=== PATIENT | female | born 1980 | race Two or more races ===

== ENCOUNTER 2017-01-26 11:12 | Outpatient (CLI) | payer BC, MEDICAID | END 2017-01-26 11:35 | disposition home or self-care (01) | LOC: LC 11:12 | PROVIDERS: ATTEND Student in an Organized Health Care Education/Training Program | PROC: 4A1HXCZ Monitoring of Products of Conception, Cardiac Rate, External Approach (ICD-10-PCS; principal; 2017-01-26) | DX: O09.523 Supervision of elderly multigravida, third trimester (principal); Z3A.35 35 weeks gestation of pregnancy | CPT/HCPCS: 59025 ==

== ENCOUNTER 2017-01-30 22:12 | Outpatient (CLI) | payer BC, MEDICAID ==
[2017-01-30 22:51] LABS: APPEARANCE,URINE SLIGHTLY-CLOUDY; BILIRUBIN,URINE NEGATIVE (NEGATIVE); GLUCOSE, URINE NEGATIVE (NEGATIVE); KETONES,URINE 20 mg/dL (NEGATIVE); LEUKOCYTE ESTERASE,URINE LARGE (NEGATIVE); NITRITE,URINE NEGATIVE (NEGATIVE); PROTEIN,URINE NEGATIVE (NEGATIVE); URINE SPECIFIC GRAVITY 1.006; UROBILINOGEN,URINE NEGATIVE mg/dL (<2.0)
[2017-01-30 23:02] LABS: URINE BARBITURATES SCREEN NEGATIVE; URINE METHADONE SCREEN NEGATIVE; URINE OPIATES LOW NEGATIVE; URINE PHENCYCLIDINE SCREEN NEGATIVE
--- NOTE | 2017-01-31 01:45 | Non Stress Test Report ---
Non Stress Test Datetime Report Generated by CPN: 01/31/2017 01:45 DEMOGRAPHIC Test Number: 2 EGA NST: 36.2 EGA NST: 35.5 INDICATION Indication for Study: Ordered by Provider Indication for Study: Ordered by Provider; Other Indication for Study (NST) Other: AMA VITAL SIGNS Temperature - NST: 98.1 Pulse - NST: 89 RESP - NST: 17 NBPSYS NST: 103 NBPDIA NST: 55 MONITORING Monitor Explained: Monitor Explained; Test Explained; Patient Verbalized Understanding Monitor Explained: Monitor Explained; Test Explained; Patient Verbalized Understanding Time on Monitor: 01/30/2017 22:29 Time on Monitor: 01/26/2017 11:25 Time off Monitor: 01/31/2017 00:08 Time off Monitor: 01/26/2017 11:51 NST Duration: 99 NST Duration: 26 NST INTERVENTIONS NST Interventions: PO Hydration; Reposition Patient NST Interventions: PO Hydration; Reposition Patient Physician Notified NST: Dr. Montez Physician Notified NST: DR MONTEZ BABY A: [id number] BABY A Movement : Present Movement : Present Contraction Frequency : occasional Contraction Frequency : denies FHR Baseline : 130 FHR Baseline : 130 Accelerations : 15X15 Accelerations : 15X15 Decelerations : None Decelerations : None Variability : Moderate 6-25bpm Variability : Moderate 6-25bpm NST Review: Meets Criteria for Reactive NST NST Review: Meets Criteria for Reactive NST NST Review and Verified By : Nadir Matthew RN NST Review and Verified By : SHAHRAM LUNA RN NST Results: Reactive NST Results: Reactive NST REPORT Report Trigger: Send Report
== END 2017-01-31 00:16 | disposition home or self-care (01) ==
LOC: LC 22:12
PROVIDERS: ATTEND Student in an Organized Health Care Education/Training Program
PROC: 4A1HXCZ Monitoring of Products of Conception, Cardiac Rate, External Approach (ICD-10-PCS; principal; 2017-01-30)
DX: O47.03 False labor before 37 completed weeks of gestation, third trimester (principal); O09.523 Supervision of elderly multigravida, third trimester; Z3A.36 36 weeks gestation of pregnancy
CPT/HCPCS: 59025; 80307; 81001

== ENCOUNTER 2017-02-01 14:34 | Outpatient (CLI) | payer BC, MEDICAID ==
[2017-02-01] MEDS ORDERED: RINGERS SOLUTION,LACTATED 1,000 ML IV PRN ×2 (15:11→15:12)
[2017-02-01 16:59] LABS: APPEARANCE,URINE SLIGHTLY-CLOUDY; BILIRUBIN,URINE NEGATIVE (NEGATIVE); GLUCOSE, URINE NEGATIVE (NEGATIVE); KETONES,URINE 80 mg/dL (NEGATIVE); LEUKOCYTE ESTERASE,URINE LARGE (NEGATIVE); NITRITE,URINE NEGATIVE (NEGATIVE); PROTEIN,URINE NEGATIVE (NEGATIVE); UROBILINOGEN,URINE NEGATIVE mg/dL (<2.0)
[2017-02-01 17:14] LABS: URINE BARBITURATES SCREEN NEGATIVE; URINE METHADONE SCREEN NEGATIVE; URINE OPIATES LOW NEGATIVE; URINE PHENCYCLIDINE SCREEN NEGATIVE
--- NOTE | 2017-02-01 17:23 | Non Stress Test Report ---
Non Stress Test Datetime Report Generated by CPN: 02/01/2017 17:23 DEMOGRAPHIC EGA NST: 36.4 INDICATION Indication for Study: Ordered by Provider MONITORING Monitor Explained: Monitor Explained; Test Explained; Patient Verbalized Understanding Time on Monitor: 02/01/2017 14:48 Time off Monitor: 02/01/2017 16:43 NST Duration: 115 NST INTERVENTIONS NST Interventions: IV Fluids BABY A: [id number] BABY A Movement : Present Contraction Frequency : rare FHR Baseline : 140 Accelerations : 15X15 Decelerations : None Variability : Moderate 6-25bpm NST Review: Meets Criteria for Reactive NST NST Review and Verified By : Ramses Hoff RN NST Results: Reactive NST REPORT Report Trigger: Send Report
== END 2017-02-01 17:15 | disposition home or self-care (01) ==
LOC: LC 14:34
PROVIDERS: ATTEND Specialist
PROC: 4A1HXCZ Monitoring of Products of Conception, Cardiac Rate, External Approach (ICD-10-PCS; principal; 2017-02-01)
DX: O21.1 Hyperemesis gravidarum with metabolic disturbance (principal); Z3A.36 36 weeks gestation of pregnancy
CPT/HCPCS: 59025; 80307; 81001

== ENCOUNTER 2017-02-13 12:11 | Outpatient (CLI) | payer BC, MEDICAID | END 2017-02-13 12:51 | disposition home or self-care (01) | LOC: LC 12:11 | PROVIDERS: ATTEND Obstetrics & Gynecology | PROC: 4A1HXCZ Monitoring of Products of Conception, Cardiac Rate, External Approach (ICD-10-PCS; principal; 2017-02-13) | DX: O99.283 Endocrine, nutritional and metabolic diseases complicating pregnancy, third trimester (principal); E86.0 Dehydration; O09.523 Supervision of elderly multigravida, third trimester; Z3A.38 38 weeks gestation of pregnancy | CPT/HCPCS: 59025 ==

== ENCOUNTER 2017-02-16 15:00 | Outpatient (CLI) | payer BC, MEDICAID ==
--- NOTE | 2017-02-16 15:11 | Non Stress Test Report ---
Non Stress Test Datetime Report Generated by CPN: 02/16/2017 15:11 DEMOGRAPHIC EGA NST: 38.2 INDICATION Indication for Study: Ordered by Provider; Other MONITORING Monitor Explained: Monitor Explained; Test Explained; Patient Verbalized Understanding Time on Monitor: 02/13/2017 12:23 Time off Monitor: 02/13/2017 12:48 NST Duration: 25 NST INTERVENTIONS NST Interventions: PO Hydration; Reposition Patient; Vibroacoustic Stim Physician Notified NST: Dr Perry BABY A: [id number] BABY A Movement : Present Contraction Frequency : denies FHR Baseline : 135 Accelerations : 15X15 Decelerations : None Variability : Moderate 6-25bpm NST Review: Meets Criteria for Reactive NST NST Review and Verified By : José Bellavancfranki RENC NST Results: Reactive NST REPORT Report Trigger: Send Report
== END 2017-02-16 15:45 | disposition home or self-care (01) ==
LOC: LC 15:00
PROVIDERS: ATTEND Specialist
PROC: 4A1HXCZ Monitoring of Products of Conception, Cardiac Rate, External Approach (ICD-10-PCS; principal; 2017-02-16)
DX: O09.523 Supervision of elderly multigravida, third trimester (principal); Z3A.38 38 weeks gestation of pregnancy
CPT/HCPCS: 59025

== ENCOUNTER 2017-02-22 06:52 | Inpatient (IN) | payer BC, MEDICAID ==
[2017-02-22] MEDS ORDERED: CEFAZOLIN 2 GM/D5W RTU 2 GM/50 ML RTUPB IV PRN (07:06)
[2017-02-22 07:16] LABS: ABSOLUTE LYMPHOCYTES (AUTO) 2.6 10^3/uL (0.5-4.7); ABSOLUTE MONOCYTES (AUTO) 0.5 10^3/uL (0.1-1.4); ABSOLUTE NEUT (AUTO) 5.7 10^3/uL (1.7-8.2); BASOPHILS % (AUTO) 0.4 % (0-2); EOSINOPHILS % (AUTO) 0.6 % (0-6); HEMATOCRIT 26.3 % (36.0-47.0); HEMOGLOBIN 8.9 g/dL (12.0-15.5); HGB HCT DIFFERENCE 0.4; MEAN CORPUSCULAR HEMOGLOBIN 27.7 pg (27.0-33.4); MEAN CORPUSCULAR HGB CONC 33.6 g/dL (32.0-36.0); MEAN CORPUSCULAR VOLUME 83 fl (80-97); MONOCYTES % (AUTO) 5.8 % (3-13); RED BLOOD COUNT 3.19 10^6/uL (3.72-5.28); RED CELL DISTRIBUTION WIDTH 14.7 % (11.5-14.0); SEGMENTED NEUTROPHILS % (AUTO) 64.2 % (42-78); WHITE BLOOD COUNT 8.9 10^3/uL (4.0-10.5)
[2017-02-22] MEDS ORDERED: RINGERS SOLUTION,LACTATED 1,000 ML IV PRN (07:48)
[2017-02-22] MEDS ORDERED: RINGERS SOLUTION,LACTATED 2,000 ML IV ONE (08:00)
[2017-02-22] MEDS ORDERED: OXYTOCIN 10 UNIT/ML VIAL ONE (09:10)
[2017-02-22] MEDS ORDERED: EPHEDRINE SULFATE INJ 50 MG/1 ML AMPULE ONE (09:10)
[2017-02-22 09:14] LABS: APPEARANCE,URINE TURBID; BILIRUBIN,URINE NEGATIVE (NEGATIVE); GLUCOSE, URINE NEGATIVE (NEGATIVE); KETONES,URINE TRACE mg/dL (NEGATIVE); LEUKOCYTE ESTERASE,URINE LARGE (NEGATIVE); NITRITE,URINE NEGATIVE (NEGATIVE); PROTEIN,URINE NEGATIVE (NEGATIVE); URINE SPECIFIC GRAVITY 1.008; UROBILINOGEN,URINE NEGATIVE mg/dL (<2.0)
[2017-02-22 09:27] LABS: URINE BARBITURATES SCREEN NEGATIVE; URINE METHADONE SCREEN NEGATIVE; URINE OPIATES LOW NEGATIVE; URINE PHENCYCLIDINE SCREEN NEGATIVE
[2017-02-22] MEDS ORDERED: PROMETHAZINE HCL INJ 25 MG/1 ML VIAL IV PRN ×2 (10:29)
[2017-02-22] MEDS ORDERED: MEPERIDINE HCL/PF INJ 25 MG/1 ML DISP.SYRIN IV PRN (10:29)
[2017-02-22] MEDS ORDERED: FENTANYL CITRATE INJ/PF 100 MCG/2 ML AMPUL IV PRN ×3 (10:29)
[2017-02-22] MEDS ORDERED: DIPHENHYDRAMINE HCL 50 MG/ML VIAL IV PRN (10:29)
[2017-02-22] MEDS ORDERED: ONDANSETRON HCL INJ/PF 4 MG/2 ML SDV IV PRN (10:29)
[2017-02-22] MEDS ORDERED: MISOPROSTOL 0.2 MG TABLET ONE (10:49)
[2017-02-22] MEDS: FENTANYL CITRATE INJ/PF 100 MCG/2 ML AMPUL ONE ×4 (11:25→11:45)
[2017-02-22] MEDS ORDERED: ACETAMINOPHEN 100 ML IV ONE (11:28)
--- NOTE | 2017-02-22 11:58 | OPERATIVE REPORT E ---
Operative Report NAME: BLESSING FRAGA : 1980 AGE: 36Y DATE OF SURGERY: 02/22/2017 ROOM: 211 PREOPERATIVE DIAGNOSES: 1. Intrauterine at 39+ weeks with history of shoulder dystocia, desire for primary with permanent sterilization via tubal ligation. 2. Anemia. POSTOPERATIVE DIAGNOSES: 1. Intrauterine at 39+ weeks with history of shoulder dystocia, desire for primary with permanent sterilization via tubal ligation. 2. Anemia. OPERATION PERFORMED: Primary low-transverse cervical section with bilateral tubal ligation. SURGEON: DONALD DOUGLAS M.D. ANESTHESIA: Spinal. ESTIMATED BLOOD LOSS: 600 mL. SPECIMEN TO PATHOLOGY: Placenta. FINDINGS: Roberts female , vertex presentation, clear amniotic fluid, Apgars 9 and 10, weight was 3505 grams. Normal-appearing uterus, tubes and ovaries. The right fallopian tube did have a very small fluid collection distally in it. DESCRIPTION OF PROCEDURE: After discussing risks, benefits, and alternatives of the procedure and obtaining informed consent, the patient was taken to the OR where spinal anesthesia was achieved. She was positioned in a dorsal supine position with a leftward tilt. A Main catheter was placed and she was prepped and draped in the standard fashion. A Pfannenstiel skin incision was made and the abdomen was entered in the standard fashion. A low-transverse cervical incision was made. The surgeon's hand was entered into the hysterotomy incision and the vertex delivered. A nuchal cord was reduced. Shoulders and body delivered easily thereafter. Cord was clamped x2 and cut. Infant was handed to Pediatrics who were present. The placenta was manually extracted. The uterus was exteriorized and cleared of all clots and debris. The hysterotomy incision was closed in a 2-layer fashion with 0 Monocryl. Excellent hemostasis was observed. A Filshie clip was placed across the isthmic portion of each fallopian tube. The uterus, tubes and ovaries were returned to the peritoneal cavity and the cavity was irrigated. Hemostasis was again assured. The peritoneum was closed with 2-0 Vicryl in a pursestring fashion. The rectus muscles were loosely reapproximated with interrupted stitches of 2-0 Vicryl. The subfascial spaces were inspected and hemostasis achieved with cautery. The fascia was closed with #1 Vicryl. Subcutaneous spaces were irrigated and hemostasis achieved with cautery. The subcutaneous spaces were reapproximated with 3-0 plain gut. The skin was closed in a subcuticular fashion with 3-0 Monocryl. An OpSite dressing was applied. Cytotec 1000 mcg was placed per rectum as the patient had pre-existing anemia. The patient was taken to recovery in stable condition. All sponge, needle, lap and instrument counts were correct x2. DICTATING PHYSICIAN: DONALD DOUGLAS M.D. [id number] PHY#: [id number] ID: [id number] JOB#: [id number] ACCT: [id number] cc:DONALD DOUGLAS M.D. >
[2017-02-22] MEDS ORDERED: OXYTOCIN/NORMAL SALINE 20 UNIT/1,000 ML RTUINJ INJ PRN (12:11)
[2017-02-22] MEDS ORDERED: KETOROLAC TROMETHAMINE INJ/PF 30 MG/1 ML SDV ONE (12:25)
[2017-02-22] MEDS ORDERED: PROMETHAZINE HCL INJ 25 MG/1 ML VIAL IM PRN (12:30)
[2017-02-22] MEDS ORDERED: DIPH/PERTUSS(ACELL)/TETANUS VAC/PF 0.5 ML SYR (>=10YO) IM PRN (12:30)
[2017-02-22] MEDS ORDERED: OXYCODONE-ACETAMINOPHEN 5-325 MG TABLET PO PRN (12:30)
[2017-02-22] MEDS ORDERED: SIMETHICONE 80 MG TAB.CHEW PO PRN (12:30)
[2017-02-22] MEDS ORDERED: HYDROMORPHONE HCL INJ/PF 2 MG/ML AMPULE IV PRN (12:30)
[2017-02-22] MEDS ORDERED: ACETAMINOPHEN 325 MG TABLET PO PRN (12:30)
[2017-02-22] MEDS ORDERED: MEASLES,MUMPS&RUBELLA VACC/PF 0.5 ML VIAL SUBCUT PRN (12:30)
[2017-02-22] MEDS ORDERED: RINGERS SOLUTION,LACTATED 1,000 ML IV SCH (12:30)
[2017-02-22] MEDS ORDERED: DEXAMETHASONE SOD PHOSPHATE INJ 4 MG/1 ML VIAL ONE (13:46)
[2017-02-22] MEDS ORDERED: ONDANSETRON HCL INJ/PF 4 MG/2 ML SDV ONE (13:46)
[2017-02-22] MEDS ORDERED: PHENYLEPHRINE HCL INJ/PF 10 MG/1 ML SDV ONE (13:46)
[2017-02-22] MEDS ORDERED: KETOROLAC TROMETHAMINE INJ/PF 30 MG/1 ML SDV IV SCH (14:00)
[2017-02-22] MEDS: DOCUSATE SODIUM 100 MG CAPSULE PO SCH (18:42)
[2017-02-22] MEDS: KETOROLAC TROMETHAMINE INJ/PF 30 MG/1 ML SDV IV SCH (19:29)
[2017-02-22] MEDS: OXYCODONE-ACETAMINOPHEN 5-325 MG TABLET PO PRN (20:31)
[2017-02-23] MEDS: OXYCODONE-ACETAMINOPHEN 5-325 MG TABLET PO PRN ×4 (01:07→16:01)
[2017-02-23] MEDS: KETOROLAC TROMETHAMINE INJ/PF 30 MG/1 ML SDV IV SCH (03:44)
[2017-02-23 06:03] LABS: HEMATOCRIT 23.4 % (36.0-47.0); MEAN CORPUSCULAR HEMOGLOBIN 27.6 pg (27.0-33.4); MEAN CORPUSCULAR HGB CONC 33.6 g/dL (32.0-36.0); MEAN CORPUSCULAR VOLUME 82 fl (80-97); RED BLOOD COUNT 2.84 10^6/uL (3.72-5.28); RED CELL DISTRIBUTION WIDTH 14.7 % (11.5-14.0)
[2017-02-23 06:26] LABS: HEMOGLOBIN 7.8 g/dL (12.0-15.5)
--- NOTE | 2017-02-23 09:05 | PDOC PROGRESS REPORT ---
Subjective-OB Subjective: Post Delivery Day: 1 36 year old. Denies any needs at this time, states lochia is stable, pain well controlled, voiding without difficulty. Passing gas, tolerating diet. Physical Exam (OB) Vital Signs: Temp Pulse Resp BP Pulse Ox 98.2 F 61 16 103/53 L 99 02/23/17 08:29 02/23/17 08:29 02/23/17 08:29 02/23/17 08:29 02/23/17 08:29 Intake & Output 02/22/17 02/23/17 02/24/17 06:59 06:59 06:59 Intake Total 2540 Output Total 4800 Balance -2260 Weight 93.44 kg - Dressing Removed: No - honeycomb dressing in place Incision: Dressing - Bilateral Tubal Ligation Dressing Removed: No - honeycomb dressing in place Site: Dressing - Lochia Lochia Amount: Moderate 25-50 ml Lochia Color: Rubra/Red - Abdomen Description: Tender, Soft Hernia Present: No Fundal Description: Firm, Midline Fundal Height: u/u - u/2 Objective-Diagnostic Laboratory: 02/23/17 05:46 02/22/17 02/23/17 08:45 05:46 WBC 13.0 H RBC 2.84 L Hgb 7.8 L Hct 23.4 L MCV 82 MCH 27.6 MCHC 33.6 RDW 14.7 H Plt Count 242 Urine Color YELLOW Urine Appearance TURBID Urine pH 6.0 Ur Specific [place] 1.008 Urine Protein NEGATIVE Urine Glucose (UA) NEGATIVE Urine Ketones TRACE H Urine Blood SMALL H Urine Nitrite NEGATIVE Ur Leukocyte Esterase LARGE H Urine WBC (Auto) >182 Urine RBC (Auto) 16 Assessment and Plan(PN) - Assessment and Plan (1) Chronic anemia Is this a current diagnosis for this admission?: Yes Plan: ferrous sulfate increase dietary iron (2) Delivery by elective caesarean section Is this a current diagnosis for this admission?: Yes Plan: routine post op care - Time Spent with Patient Time with patient: Less than 15 minutes Critical Time spent with patient: Less than 15 minutes Smoking Education Provided: Over 3 minutes Medications reviewed and adjusted accordingly: Yes - Disposition Anticipated Discharge: Home Within: within 24 hours
[2017-02-23] MEDS: PRENATAL VITAMIN W-O CA NO5/FE FUMARATE/FA CAPSULE PO SCH (09:48)
[2017-02-23] MEDS: DOCUSATE SODIUM 100 MG CAPSULE PO SCH ×2 (09:55→17:16)
[2017-02-23] MEDS: IBUPROFEN 800 MG TABLET PO SCH ×3 (11:30→23:22)
[2017-02-24] MEDS: IBUPROFEN 800 MG TABLET PO SCH ×2 (05:15→11:25)
[2017-02-24] MEDS: PRENATAL VITAMIN W-O CA NO5/FE FUMARATE/FA CAPSULE PO SCH (10:23)
[2017-02-24] MEDS: DOCUSATE SODIUM 100 MG CAPSULE PO SCH (10:23)
--- NOTE | 2017-02-24 11:09 | PDOC PROGRESS REPORT ---
Subjective-OB Subjective: Post Delivery Day: 36 year old. Denies any needs at this time. Ready to go home. Physical Exam (OB) Vital Signs: Temp Pulse Resp BP Pulse Ox 98.6 F 75 16 103/53 L 99 02/24/17 08:25 02/24/17 08:25 02/24/17 08:25 02/24/17 08:25 02/24/17 08:25 Intake & Output 02/23/17 02/24/17 02/25/17 06:59 06:59 06:59 Intake Total 2540 1500 Output Total 4800 Balance -2260 1500 Weight 93.44 kg - PIH/Pre-Eclampsia Clonus: Negative Headache: Absent Epigastric Pain: No Visual Changes: No - Dressing Removed: No - opsite Incision: Well Approximated - Bilateral Tubal Ligation Dressing Removed: No - honeycomb dressing in place Site: Dressing - Lochia Lochia Amount: Scant < 10 ml Lochia Color: Rubra/Red - Abdomen Description: Soft Hernia Present: No Bowel Sounds: Normoactive Flatus Presence: Present Stool: Yes Fundal Description: Firm, Midline Fundal Height: u/u - u/2 Objective-Diagnostic Laboratory: 02/23/17 05:46 02/22/17 08:45 Clean Catch Midstream Urine Culture - Final Mixed Urogenital Angela Assessment and Plan(PN) - Time Spent with Patient Smoking Education Provided: Over 3 minutes Medications reviewed and adjusted accordingly: Yes - Disposition Anticipated Discharge: Home
--- NOTE | 2017-02-24 11:16 | PDOC DISCHARGE SUMMARY ---
Final Diagnosis Discharge Date: 02/24/17 - Final Diagnosis (1) Is this a current diagnosis for this admission?: Yes (2) AMA (advanced maternal age) multigravida 35+ Is this a current diagnosis for this admission?: Yes (3) Delivery by elective caesarean section Is this a current diagnosis for this admission?: Yes Discharge Data - Discharge Medication Home Medications: Pnv#71/Iron/Folic Acid/Dha [Vitapearl Softgel] 1 cap PO DAILY 02/22/17 Ibuprofen [Motrin 800 mg Tablet] 800 mg PO Q6 #30 tablet 02/24/17 Oxycodone HCl/Acetaminophen [Percocet 5-325 mg Tablet] 1 tab PO Q4HP PRN #20 tablet 02/24/17 Gestational Age: 39+ wks Reason(s) for Admission: Ceasarean Section-Primary Intrapartum Procedure(s): : Low Cervical, Transverse - Data Baby 1 Female at 1 minute: 9 at 5 minutes: 10 Weight: 3505 kg Home with Mother: Yes Complications: No - Diagnosis Test Laboratory: Temp Pulse Resp BP Pulse Ox 98.6 F 75 16 103/53 L 99 02/24/17 08:25 02/24/17 08:25 02/24/17 08:25 02/24/17 08:25 02/24/17 08:25 02/22/17 02/22/17 02/23/17 07:05 08:45 05:46 RBC 3.19 L 2.84 L Hgb 8.9 L 7.8 L Hct 26.3 L 23.4 L Urine Opiates Screen NEGATIVE - Discharge information/Instructions Discharge Activity: Activity As Tolerated, Balance Activity w/Rest, No Lifting Over 10 Pounds, No Lifting/Push/Pulling, Non-Ambulatory Child, Pelvic Rest, Slowly Increase Activity, No tub bath Discharge Diet: Regular Disposition: HOME, SELF-CARE Follow up with: [facility] in: 1, Weeks
[2017-02-24 11:49] VITALS: BP 120/66
--- NOTE | 2017-02-27 13:16 | PDOC DELIVERY SUMMARY ---
Delivery Summary - Maternal Hx : III Hx # Term Pregnancies: 2 STEFF: 02/25/17 Gestational Age: 39+ wks Ruptured Membranes: AROM Time of Rupture: 10:22 Fluids: Clear - Delivery Presentation: Vertex Heart Rate Monitoring: Done Pre-Operatively Support Person Present: Yes Location: OR : Scheduled, Primary Placenta: Within Normal Limits Delivery of Placenta Date: 02/22/17 Delivery of Placenta Time: 10:24 - Medications Type of Anesthesia:: Spinal - Infant Assess and Care Baby 1 Female Delivery of Infant Date: 02/22/17 Delivery of Infant Time: 10:23 at 1 minute: 9 at 5 minutes: 10 Preprinted Number On Band: [id number] Infant Skin to Skin: Yes Skin to Skin (Mins): 4 To Nursery At: 10:35 Mode of Transport: Bassinet Infant Delivery Weight: 3505 kg Delivery Length: 20 in - Delivery Personnel [employer] Manager: PAZ Lopez RN: SALINA FOWLER RN: KEILY HEREDIA MD: DONALD DOUGLAS
== END 2017-02-24 13:30 | disposition home or self-care (01) | DRG 766 ==
LOC: 2N 06:52
PROVIDERS: ADMIT Specialist; ATTEND Specialist
PROC: 0UB70ZZ Excision of Bilateral Fallopian Tubes, Open Approach (ICD-10-PCS; 2017-02-22)
PROC: 4A1HXCZ Monitoring of Products of Conception, Cardiac Rate, External Approach (ICD-10-PCS; 2017-02-22)
PROC: 10D00Z1 Extraction of Products of Conception, Low, Open Approach (ICD-10-PCS; principal; 2017-02-22 09:30)
DX: O34.211 Maternal care for low transverse scar from previous cesarean delivery (principal); O69.81X0 Labor and delivery complicated by cord around neck, without compression, not applicable or unspecified; O99.02 Anemia complicating childbirth; D64.9 Anemia, unspecified; Z87.891 Personal history of nicotine dependence; Z3A.39 39 weeks gestation of pregnancy; Z30.2 Encounter for sterilization; Z37.0 Single live birth
CPT/HCPCS: 1961; 36415; 59025; 80307; 81001; 85025; 85027; 86850; 86900; 86901; 87086; 88307; 94799; J0131; J0690; J1100; J1170; J1885; J2370; J2405; J2590; J3010; J3490; J7120

== ENCOUNTER 2017-06-15 09:02 | Emergency (ER) | payer BC ==
--- NOTE | 2017-06-15 09:21 | ER Document Report ---
ED General - General Chief Complaint: Vomiting Stated Complaint: LEG PAIN,VOMITING Time Seen by Provider: 06/15/17 09:14 Notes: 36-year-old female presents complaining of right lower quadrant abdominal pain low in her pelvis radiating down the front of her right leg. On positional. Dull. Similar to prior UTIs. Increased urinary frequency. No back pain or fever. No history of herniated disks, no leg swelling or neurologic symptoms in the right leg and no injury. She is 4 months . She has a history of an open appendectomy. She had normal bowel movements yesterday. She did not have breakfast this morning and slightly nauseous today. No distention. Positive gas. TRAVEL OUTSIDE OF THE [place] IN LAST 30 DAYS: No - Related Data Allergies/Adverse Reactions: Penicillins Adverse Reaction (Intermediate, Verified 06/15/17 09:06) Drop in body temperature morphine [Morphine] Adverse Reaction (Mild, Verified 06/15/17 09:06) Nausea and hallucinations Past Medical History - Social History Smoking Status: Former Smoker Family History: None - Past Medical History Cardiac Medical History: Reports: Hx Heart Murmur Denies: Hx Hypertension, Hx Pulmonary Embolism Pulmonary Medical History: Denies: Hx Asthma, Hx Sleep Apnea, Hx Tuberculosis Neurological Medical History: Denies: Hx Cerebrovascular Accident, Hx Seizures Endocrine Medical History: Denies: Hx Hyperthyroidism, Hx Hypothyroidism Renal/ Medical History: Reports: Hx Ovarian Cysts. Denies: Hx Kidney Stones, Hx Pelvic Inflammatory Disease Malignancy Medical History: Denies: Hx Breast Cancer, Hx Cervical Cancer, Hx Ovarian Cancer GI Medical History: Denies: Hx Gastroesophageal Reflux Disease, Hx Hiatal Hernia , Hx Ulcer Musculoskeltal Medical History: Denies Hx Fibromyalgia Psychiatric Medical History: Reports: Hx Depression Denies: Hx Bipolar Disorder, Hx Post Traumatic Stress Disorder, Hx Schizophrenia Traumatic Medical History: Reports: Hx Fractures Infectious Medical History: Denies: Hx HIV Past Surgical History: Reports: Hx Appendectomy - Immunizations Hx Diphtheria, Pertussis, Tetanus Vaccination: No Review of Systems - Review of Systems Notes: REVIEW OF SYSTEMS GEN: Denies fever, chills, weight loss ENT: Denies sore throat, nasal discharge, ear pain EYES: Denies blurry vision, eye pain, discharge CV: Denies chest pain, palpitations, edema RESP: Denies cough, shortness of breath, wheezing GI: Lower quadrant pain, nausea, denies vomiting, diarrhea MSK: Denies joint pain/swelling, edema, anterior right leg pain SKIN: Denies rash, skin lesions LYMPH: Denies swollen glands/lymph nodes NEURO: Denies headache, focal weakness or numbness, dizziness PSYCH: Denies depression, suicidal or homicidal ideation PHYSICAL EXAMINATION General: No acute distress, well-nourished Head: Atraumatic, normocephalic ENT: Mouth normal, oropharynx moist, no exudates or tonsillar enlargement Eyes: Conjunctiva normal, pupils equal, lids normal Neck: No JVD, supple, no guarding CVS: Normal rate, regular rhythm, no murmurs Resp: No resp distress, equal and normal breath sounds bilaterally GI: Nondistended, soft, will suprapubic and right lower quadrant tenderness to palpation, no rebound or guarding normal groin with no hernias on the right. Ext: No deformities, no edema, normal range of motion in upper and lower ext. Anterior right leg pain on range of motion. Back: No CVA or midline TTP Skin: No rash, warm Lymphatic: No lymphadeopathy noted Neuro: Awake, alert. Face symmetric. GCS 15. Physical Exam - Vital signs Vitals: Temp Pulse Resp BP Pulse Ox 98.2 F 75 16 103/76 100 06/15/17 09:07 06/15/17 09:07 06/15/17 09:07 06/15/17 09:07 06/15/17 09:07 Course - Re-evaluation Re-evalutation: 06/15/17 09:20 36-year-old female with history of appendectomy presents with right lower quadrant pain which radiates to her leg. She has no hernia on exam. There is no leg swelling to suggest DVT. Differential includes UTI pyelonephritis, lumbar disc disease. Will rule out and UTI with UA and get basic labs. Pyelo less likely given lack of fever and CVA tenderness. Doubt obstruction given her reassuring abdominal exam and continued passage of flatus. Her pain was gradual onset, does not seem severe so I think ovarian torsion is less likely as well. Her mother is worried about a DVT but she has no swelling and no risk factors currently. I do not think she needs workup at this time for DVT. 06/15/17 09:23 06/15/17 09:24 06/15/17 10:07 Hematology normal. Urine is infected. Patient has no fever flank tenderness or think she is appropriate to be treated with Macrobid. I have discussed with the patient there likely diagnosis, aftercare plan, follow-up plans and my usual and customary return precautions. They verbalized understanding of this. - Vital Signs Vital signs: Temp Pulse Resp BP Pulse Ox 98.2 F 75 16 103/76 100 06/15/17 09:07 06/15/17 09:07 06/15/17 09:07 06/15/17 09:07 06/15/17 09:07 - Laboratory Result Diagrams: 06/15/17 09:33 06/15/17 09:33 Laboratory results interpreted by me: 06/15/17 06/15/17 09:33 09:33 Hgb 11.7 L Hct 35.7 L MCV 79 L MCH 25.9 L RDW 16.8 H Ur Leukocyte Esterase SMALL H Discharge - Discharge Clinical Impression: Cystitis without hematuria Condition: Good Disposition: HOME, SELF-CARE Instructions: Urinary Tract Infection ([facility]) Prescriptions: Nitrofurantoin 25 mg PO BID #14 ml Nitrofurantoin/Nitrofuran Mac [Macrobid 100 mg Capsule] 1 tab PO BID #20 capsule Referrals: LAWRENCE VALLEJO MD [Primary Care Provider] - Follow up in 3-5 days
[2017-06-15 09:51] LABS: APPEARANCE,URINE SLIGHTLY-CLOUDY; BILIRUBIN,URINE NEGATIVE (NEGATIVE); COLOR,URINE YELLOW; GLUCOSE, URINE NEGATIVE (NEGATIVE); KETONES,URINE NEGATIVE (NEGATIVE); LEUKOCYTE ESTERASE,URINE SMALL (NEGATIVE); NITRITE,URINE NEGATIVE (NEGATIVE); PROTEIN,URINE NEGATIVE (NEGATIVE); URINE SPECIFIC GRAVITY 1.024; UROBILINOGEN,URINE NEGATIVE mg/dL (<2.0)
[2017-06-15 09:52] LABS: ABSOLUTE EOSINOPHILS # (AUTO) 0.1 10^3/uL (0.0-0.6); ABSOLUTE LYMPHOCYTES (AUTO) 1.7 10^3/uL (0.5-4.7); ABSOLUTE MONOCYTES (AUTO) 0.5 10^3/uL (0.1-1.4); ABSOLUTE NEUT (AUTO) 5.1 10^3/uL (1.7-8.2); BASOPHILS % (AUTO) 0.4 % (0-2); EOSINOPHILS % (AUTO) 1.5 % (0-6); HEMATOCRIT 35.7 % (36.0-47.0); HEMOGLOBIN 11.7 g/dL (12.0-15.5); LYMPHOCYTES % (AUTO) 22.8 % (13-45); MEAN CORPUSCULAR HEMOGLOBIN 25.9 pg (27.0-33.4); MEAN CORPUSCULAR HGB CONC 32.8 g/dL (32.0-36.0); MEAN CORPUSCULAR VOLUME 79 fl (80-97); MONOCYTES % (AUTO) 6.8 % (3-13); PLATELET COUNT 283 10^3/uL (150-450); RED BLOOD COUNT 4.52 10^6/uL (3.72-5.28); RED CELL DISTRIBUTION WIDTH 16.8 % (11.5-14.0); SEGMENTED NEUTROPHILS % (AUTO) 68.5 % (42-78); TOTAL CELLS COUNTED % (AUTO) 100 %; WHITE BLOOD COUNT 7.5 10^3/uL (4.0-10.5)
[2017-06-15 10:13] LABS: ANION GAP 10 (5-19); BLOOD UREA NITROGEN 11 mg/dL (7-20); CALCIUM 9.4 mg/dL (8.4-10.2); CARBON DIOXIDE 23 mmol/L (22-30); CHLORIDE 105 mmol/L (98-107); GLUCOSE 94 mg/dL (75-110); POTASSIUM 4.1 mmol/L (3.6-5.0); SODIUM 138.2 mmol/L (137-145)
[2017-06-15] MEDS ORDERED: IBUPROFEN 800 MG TABLET PO ONE (10:30)
[2017-06-15 10:40] VITALS: BP 119/70
== END 2017-06-15 10:37 | disposition home or self-care (01) ==
LOC: ER 09:02
DX: N30.90 Cystitis, unspecified without hematuria (principal); R11.10 Vomiting, unspecified; R10.31 Right lower quadrant pain; R10.2 Pelvic and perineal pain; M79.604 Pain in right leg; R35.0 Frequency of micturition; Z87.891 Personal history of nicotine dependence
CPT/HCPCS: 36415; 80048; 81001; 81025; 85025; 99283